=== PATIENT | female | born 1965 | race Caucasian/White ===

== ENCOUNTER 2020-08-16 07:07 | Emergency (ER) | payer MEDICARE, OTHER ==
[~2020-08-16] VITALS: Ht 157.5 cm; Wt 75.8 kg
--- NOTE | 2020-08-16 07:38 | NUR ---
THIS IS A 55 YO F W/ C/O RT SIDE PAIN X3 DAYS. PT REPORTS HX OF ESOPHAGEAL SX IN SAME LOCATION. PT HAS AREA OF SWELLING THAT MOVES W/ INSPIRATION AND EXPIRATION. LUNG SOUNDS PRESENT BILAT. PT TACHYCARDIC, HYPERTENSIVE, OTHER VS WDL. CONNECTED TO ALL MONITORING, NADN. ERP MADE AWARE OF THIS RN'S CONCERNS. Addendum: 08/16/20 at 0917 by [email or web address] THIS IS A 55 YO F W/ C/O LT SIDE PAIN X3 DAYS. PT REPORTS HX OF ESOPHAGEAL SX IN SAME LOCATION. PT HAS AREA OF SWELLING THAT MOVES W/ INSPIRATION AND EXPIRATION. LUNG SOUNDS PRESENT BILAT. PT TACHYCARDIC, HYPERTENSIVE, OTHER VS WDL. CONNECTED TO ALL MONITORING, NADN. ERP MADE AWARE OF THIS RN'S CONCERNS.
[2020-08-16] MEDS ORDERED: LORazepam 1MG TABLET PO ONE (08:00)
[2020-08-16] MEDS ORDERED: LORazepam 1MG TABLET ONE (08:04)
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
[2020-08-16 08:20] LABS: BASOPHILS % (AUTO) 1 % (0-1); EOSINOPHILS % (AUTO) 1 % (1-7); LYMPHOCYTES % (AUTO) 18 % (22-44); MEAN CORPUSCULAR HEMOGLOBIN 29.7 pg (27.0-34.8); MEAN CORPUSCULAR HGB CONC 33.8 g/dL (32.4-35.8); MEAN PLATELET VOLUME 8.5 fL (7.4-10.4); MONOCYTES % (AUTO) 8 % (2-9); NEUTROPHILS % (AUTO) 71 % (42-75); PLATELET COUNT 256 x10^3/uL (130-400); RED BLOOD COUNT 5.52 x10^6/uL (3.82-5.3); RED CELL DISTRIBUTION WIDTH 14.4 % (9.6-15.2)
[2020-08-16 08:23] LABS: MD NO
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
[2020-08-16 08:30] LABS: ALANINE AMINOTRANSFERASE 40 U/L (12-78); ALBUMIN 4.1 g/dL (3.4-5.0); ANION GAP 5 mmol/L (5-15); CALCIUM 9.2 mg/dL (8.5-10.1); CHLORIDE 110 mmol/L (98-107); CREATININE 0.73 mg/dL (0.55-1.02); SALICYLATE LEVEL 2.1 mg/dL (2.8-20.0)
[2020-08-16 08:34] LABS: ALKALINE PHOSPHATASE 94 U/L (45-117); BILIRUBIN,TOTAL 0.4 mg/dL (0.2-1.0); TOTAL PROTEIN 7.9 g/dL (6.4-8.2)
[2020-08-16 08:36] LABS: MICROSCOPIC NOT IND
--- NOTE | 2020-08-16 08:42 | NUR ---
RAD IN ROOM.
[2020-08-16 08:49] LABS: AMPHETAMINE SCREEN, URINE Negative (Negative); BARBITURATE SCREEN, URINE Negative (Negative); BENZODIAZEPINE SCREEN, URINE Negative (Negative); CANNABINOID SCREEN, URINE Positive (Negative); COCAINE SCREEN, URINE Negative (Negative); METHADONE SCREEN, URINE Negative (Negative); OPIATE SCREEN, URINE Negative (Negative)
--- NOTE | 2020-08-16 09:12 | NUR ---
ALL TESTS RESULTED, PT IS UP FOR RECHECK AT THIS TIME. PT RESTING ON GURNEY W/ CALL LIGHT IN REACH. VS UNCHANGED FROM PREVIOUS ASSESSMENT.
[2020-08-16 09:32] VITALS: BP 159/110
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
== END 2020-08-16 09:41 | disposition home or self-care (01) ==
LOC: ED 07:22
DX: R07.89 Other chest pain (principal); I10 Essential (primary) hypertension; F43.12 Post-traumatic stress disorder, chronic; R00.0 Tachycardia, unspecified; F17.200 Nicotine dependence, unspecified, uncomplicated
CPT/HCPCS: 36415; 71045; 80053; 80299; 80307; 80320; 80329; 81003; 83690; 83735; 85025; 99284; G0480